=== PATIENT | male | born 1955 | race Caucasian/White ===

== ENCOUNTER → 2021-06-04 12:02 | Outpatient (CLI) | payer MEDICARE, SELFPAY ==
--- NOTE | 2021-06-04 12:05 | DI.MRI.S_ITS ---
PROCEDURE: MR CERVICAL SPINE WO CON INDICATIONS: Radiculopathy, cervical region TECHNIQUE: Noncontrast sagittal T1 spin echo and T2 fast spin echo, sagittal STIR, foraminal oblique sagittal T2 fast spin echo, and axial gradient echo or T2 fast spin echo through the cervical spine. COMPARISON: [facility], MR, C-SPINE WITHOUT CONTRAST, 02/14/2007, 8:37. FINDINGS: Image quality: Degraded by patient motion artifact. Alignment and Curvature: There is trace, approximately 2 millimeters of C4-C5 anterolisthesis. Bone Marrow: Reactive endplate changes noted adjacent to the C5-C6 and C6-C7 discs. Spinal Cord: Visualized spinal cord has normal size and signal. No cerebellar tonsillar herniation. Paraspinous Soft Tissues: No paravertebral masses. Prevertebral soft tissues are normal in thickness. C2-C3: Loss of disc signal. Mild, diffuse disc bulge. No central stenosis. Mild bilateral neural foraminal narrowing. No neural compression. C3-C4: Loss of disc signal. Mild, diffuse disc bulge. Moderate right mild left facet hypertrophy. No central stenosis. Severe right and moderate left neural foraminal narrowing with compression of the exiting right C4 nerve root. C4-C5: Loss of disc signal and slight loss of disc height. Mild, diffuse disc bulge. Moderate bilateral facet hypertrophy. Moderate bilateral uncovertebral joint hypertrophy. Mild narrowing of the central canal. Severe bilateral neural foraminal narrowing with compression of the exiting C5 nerve roots. C5-C6: Loss of disc signal and height. Moderate, diffuse disc bulge. Moderate right and mild left facet hypertrophy. Moderate right and mild left uncovertebral joint hypertrophy. Severe narrowing of the central canal with compression of the cervical spinal cord. Severe right and moderate left neural foraminal narrowing with compression of the exiting right C6 nerve root. C6-C7: Loss of disc signal and height. Mild to moderate diffuse disc bulge. Mild bilateral facet hypertrophy. Moderate bilateral uncovertebral joint hypertrophy. Moderate narrowing of the central canal. Severe bilateral neural foraminal narrowing with compression of the exiting C7 nerve roots. C7-T1: Loss of disc signal. Mild, diffuse disc bulge. Mild bilateral facet hypertrophy. Mild narrowing of the central canal. Moderate bilateral neural foraminal narrowing. No neural compression. IMPRESSION: 1. Multilevel degenerative disc disease. 2. Multilevel facet arthropathy. 3. Severe C5-C6 central canal narrowing with compression of the cervical spinal cord. 4. Severe right C3-C4 and C5-C6 neural foraminal narrowing with compression of the exiting right C4 and C6 nerve roots. Severe bilateral C4-C5 and C6-C7 neural foraminal narrowing with compression of the exiting bilateral C5 and C7 nerve roots. Dictated by: Kayli Santos MD, PhD on 06/04/2021 at 16:37 Approved by: Kayli Santos MD, PhD on 06/04/2021 at 16:44
== END ==
PROVIDERS: PCP Family Medicine; Referring Provider Family Medicine; Visit Provider Family Medicine
DX: M50.11 Cervical disc disorder with radiculopathy, high cervical region (principal); M47.22 Other spondylosis with radiculopathy, cervical region; M48.02 Spinal stenosis, cervical region
CPT/HCPCS: 72141